=== PATIENT | male | born 1995 | race Caucasian/White ===

== ENCOUNTER 2020-10-19 14:22 | Inpatient (IN) | payer OTHER ==
[2020-10-19 15:28] LABS: BILIRUBIN,URINE NEGATIVE (NEGATIVE); GLUCOSE, URINE (UA) NEGATIVE (NEGATIVE); KETONES,URINE (UA) NEGATIVE (NEGATIVE); LEUKOCYTE ESTERASE, URINE NEGATIVE (NEGATIVE); NITRITE,URINE NEGATIVE (NEGATIVE); OCCULT BLOOD,URINE TRACE-INTA (NEGATIVE); PROTEIN,URINE TRACE mg/dL (NEGATIVE); UROBILINOGEN,URINE 0.2 (NORMAL) E.U./dL (NORMAL)
[2020-10-19 15:32] LABS: BASOPHILS % (AUTO) 0.5 %; EOSINOPHILS # (AUTO) 0.1 10^3/uL (0.0-0.7); EOSINOPHILS % (AUTO) 1.5 %; HCT - HEMATOCRIT 43.8 % (42.0-52.0); HGB - HEMOGLOBIN 15.1 g/dL (14.0-18.0); LYMPHOCYTES # (AUTO) 0.5 10^3/uL (1.5-3.5); MEAN CORPUSCULAR HEMOGLOBIN 29.8 pg (27.0-31.0); MEAN CORPUSCULAR HGB CONC 34.5 g/dL (32.0-36.0); MEAN CORPUSCULAR VOLUME 86.6 fL (80.0-94.0); MEAN PLATELET VOLUME 9.4 fL (7.4-11.4); MONOCYTES # (AUTO) 0.5 10^3/uL (0.0-1.0); MONOCYTES % (AUTO) 6.1 %; NEUTROPHILS # (AUTO) 6.7 10^3/uL (1.5-6.6); NEUTROPHILS % (AUTO) 85.3 %; PLT - PLATELET COUNT 212 10^3/uL (130-450); RED BLOOD COUNT 5.06 10^6/uL (4.70-6.10); RED CELL DISTRIBUTION WIDTH 11.9 % (12.0-15.0); WHITE BLOOD COUNT 7.8 x10^3/uL (4.8-10.8)
[2020-10-19] MEDS ORDERED: SODIUM CHLORIDE 0.9% 2,585.49 ML IV STA (15:36)
--- NOTE | 2020-10-19 15:36 | ED Physician Documentation ---
History of Present Illness - Stated complaint Stated Complaint: FEVER - Chief complaint Chief Complaint: General - Additonal information Additional information: 25-year-old male presents the emergency department for evaluation of fever and i ncreasing scrotal pain. 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 About 2 weeks ago he had two scrotal cyst removed at an [place] dermatology clinic. He went back to the clinic yesterday for suture removal and there was purulent drainage. The solar applications development engineer placed him on Bactrim but told him that if he developed a fever to come immediately to the ER. Since being seen yesterday he has had fever, generalized rigors chills joint pain. No chest pain shortness of air vomiting or diarrhea. He denies a history of diabetes. Review of Systems Constitutional: reports: Fever, Chills, Myalgias Eyes: reports: Reviewed and negative Ears: reports: Reviewed and negative Nose: reports: Reviewed and negative Throat: reports: Reviewed and negative Cardiac: reports: Reviewed and negative Respiratory: reports: Reviewed and negative GI: reports: Reviewed and negative : reports: Testicular pain (Bilateral scrotal and testicular pain) Skin: denies: Rash, Lesions PD PAST MEDICAL HISTORY - Present Medications Home Medications: Ambulatory Orders Medication Instructions Recorded Confirmed Mupirocin 2% Oint [Bactroban 2% 1 applic TOP BID 10/19/20 10/19/20 Oint] - Allergies Allergies/Adverse Reactions: Allergies Allergy/AdvReac Type Severity Reaction Status Date / Time nickel Allergy Unknown Verified 10/19/20 14:46 PD ED PE EXPANDED - General General: Alert, No acute distress - Cardiac Cardiac: Tachy, Radial strong equal, Pedal strong equal, Cap refill < 2 sec - Respiratory Respiratory: Clear to ausultation jayce. No: Distress, Labored - Abdomen Abdomen: Normal Bowel sounds. No: Tender to palpation - Male Male : Tenderness, Other (Bilateral scrotum is erythematous and edematous. The site of two cysts being removed was identified with a small amount of clear but purulent drainage. Bilateral testicular pain. Negative cremasteric bilaterally) - Neuro Neuro: Alert and Oriented X 3, CNII-XII intact Results - Vitals Vitals: Vital Signs - 24 hr 10/19/20 10/19/20 14:40 16:52 Temperature 39.1 C H 37.8 C Heart Rate 126 H 108 H Respiratory 18 18 Rate Blood Pressure 137/78 H 128/89 H O2 Saturation 95 96 Oxygen O2 Source Room air - Labs Labs: Laboratory Tests 10/19/20 10/19/20 10/19/20 15:09 15:26 15:26 WBC 7.8 RBC 5.06 Hgb 15.1 Hct 43.8 MCV 86.6 MCH 29.8 MCHC 34.5 RDW 11.9 L Plt Count 212 MPV 9.4 Neut # (Auto) 6.7 H Lymph # (Auto) 0.5 L [place] # (Auto) 0.5 Eos # (Auto) 0.1 Baso # (Auto) 0.0 Absolute Nucleated RBC 0.00 Nucleated RBC % 0.0 Sodium Potassium Chloride Carbon Dioxide Anion Gap BUN Creatinine Estimated GFR (MDRD) Glucose Lactic Acid 0.7 Calcium Total Bilirubin AST ALT Alkaline Phosphatase Total Protein Albumin Globulin Albumin/Globulin Ratio Urine Color YELLOW Urine Clarity CLEAR Urine pH 6.0 Ur Specific [place] >=1.030 H Urine Protein TRACE Urine Glucose (UA) NEGATIVE Urine Ketones NEGATIVE Urine Occult Blood TRACE-INTA Urine Nitrite NEGATIVE Urine Bilirubin NEGATIVE Urine Urobilinogen 0.2 (NORMAL) Ur Leukocyte Esterase NEGATIVE Urine RBC 0-5 Urine WBC 0-3 Ur Squamous Epith Cells NONE SEEN Urine Bacteria None Seen Urine Mucus Moderate Strands Urine Culture Comments NOT INDICATED 10/19/20 15:26 WBC RBC Hgb Hct MCV MCH MCHC RDW Plt Count MPV Neut # (Auto) Lymph # (Auto) [place] # (Auto) Eos # (Auto) Baso # (Auto) Absolute Nucleated RBC Nucleated RBC % Sodium 135 Potassium 3.7 Chloride 97 L Carbon Dioxide 26 Anion Gap 12.0 BUN 10 Creatinine 1.0 Estimated GFR (MDRD) 90 Glucose 111 H Lactic Acid Calcium 9.5 Total Bilirubin 0.5 AST 19 ALT 22 Alkaline Phosphatase 69 Total Protein 7.9 Albumin 4.6 Globulin 3.3 Albumin/Globulin Ratio 1.4 Urine Color Urine Clarity Urine pH Ur Specific [place] Urine Protein Urine Glucose (UA) Urine Ketones Urine Occult Blood Urine Nitrite Urine Bilirubin Urine Urobilinogen Ur Leukocyte Esterase Urine RBC Urine WBC Ur Squamous Epith Cells Urine Bacteria Urine Mucus Urine Culture Comments - Rads (name of study) CT pelvis Radiology: Final report received (Mild skin thickening of the scrotum and medial right thigh without an associated abscess collection identified. No CT evidence of Joseph's gangrene) PD MEDICAL DECISION MAKING - ED course Complexity details: reviewed results, re-evaluated patient, d/w patient ED course: 25-year-old male who has a history of recurrent scrotal cysts comes to the ER with increasing scrotal pain erythema after having a scrotal cyst removed 2 weeks ago through a solar applications development engineer in [place]. Yesterday during suture removal some purulent drainage was noted and he was started on Bactrim. Over the last 24 hours he has developed generalized rigors fever myalgias. He did present here with a fever 39 1 and significant tachycardia. He was given 30 mils per kilo of saline. However he did not have an elevated lactate or leukocytosis. Given the possibilityfor Joseph's gangrene and a CT of the pelvis was completed it does show mild skin thickening in the scrotum and medial right thigh without an associated abscess. Though there is no obvious abscess identified and at this time no urgent urologic procedure is necessary he will likely benefit from IV antibiotics however as we lack urology services I will consult with urology at [facility] for their recommendations on admission here with IV antibiotics versus transfer 1720: I have spoken with Dr. Alas on-call urologist with [facility] urology. We discussed the history CT imaging and lab findings. At this time as no findings of Joseph gangrene are present and no urgent urologic procedure is necessary the patient does not need to be transferred. He would recommend admission here for IV antibiotics to [facility]. Vancomycin and ceftriaxone which has been ordered. He would recommend that once discharged from the hospital close follow-up with urology. He is happy to consult should it become necessary during the course of this hospitalization. I discussed this case with our day hospitalist Dr. Rodríguez who agrees to admit the patient for further treatment of his cellulitis of the scrotum Departure - Departure Disposition: [facility] YANIRA/Chan Clinical Impression: Cellulitis of scrotum Discharge Date/Time: 10/19/20 19:03
[2020-10-19] MEDS ORDERED: IOVERSOL 320 100 ML VIAL IVP ONE ×2 (15:37→16:29)
[2020-10-19 15:44] LABS: ALBUMIN 4.6 g/dL (3.2-5.5); ALBUMIN/GLOBULIN RATIO 1.4 (1.0-2.2); BILIRUBIN,TOTAL 0.5 mg/dL (0.2-1.0); CALCIUM 9.5 mg/dL (8.5-10.3); POTASSIUM 3.7 mmol/L (3.5-5.0); TOTAL PROTEIN 7.9 g/dL (6.7-8.2)
[2020-10-19 15:46] LABS: CLARITY,URINE CLEAR (CLEAR); WBC,URINE 0-3 /HPF (0-3)
[2020-10-19 15:47] LABS: BACTERIA,URINE None Seen /HPF (None Seen); MUCUS,URINE Moderate Strands; RBC,URINE 0-5 /HPF (0-5); SQUAMOUS EPITHELIAL CELL,UR NONE SEEN (<= Few)
--- NOTE | 2020-10-19 16:50 | CT Report ---
PROCEDURE: PELVIS W INDICATIONS: recent scrotal cyst removal ; fever and pain CONTRAST: IV CONTRAST: Optiray 320 ml: 100 PO CONTRAST: *NO PO CONTRAST TECHNIQUE: After the administration of intravenous contrast, 5 mm thick sections acquired from the iliac crests to the symphysis. 5 mm thick coronal and sagittal reformats were acquired. For radiation dose reduc tion, the following was used: automated exposure control, adjustment of mA and/or kV according to pa tient size. COMPARISON: None. FINDINGS: Image quality: Excellent. Peritoneum and bowel: Visualized bowel loops demonstrate normal wall thickness and caliber. The appe ndix is normal in appearance. There is colonic diverticulosis without acute diverticulitis in the pel vis. No intraperitoneal free fluid or air. Genitourinary: Bladder wall thickness is normal. Nodes and vessels: No iliac, pelvic, or inguinal adenopathy. Iliac vessels demonstrate normal size and enhancement. Bones: No suspicious bony lesions. Miscellaneous: No inguinal hernias. There is mild nonspecific skin thickening in the scrotum and along the proximal medial right thigh. N o discrete loculated fluid collection to suggest an abscess. No abnormal skin thickening, soft tissue gas, or subcutaneous edema in the perineum to suggest Joseph's gangrene. IMPRESSION: 1. Mild skin thickening in the scrotum and medial right thigh without an associated abscess collectio n identified. 2. No CT evidence of Joseph's gangrene. Reviewed by: Baldomero Velez MD on 10/19/2020 4:48 PM PDT Approved by: Baldomero Velez MD on 10/19/2020 4:48 PM PDT Station ID: [id number]
[2020-10-19] MEDS ORDERED: VANCOMYCIN INJ 1.5 GM in SODIUM CHLORIDE 0.9% 500 ML IV STA (17:07)
[2020-10-19] MEDS ORDERED: cefTRIAXone 1 GM in SODIUM CHLORIDE 0.9% MINIBAG 100 ML IV STA (17:08)
[2020-10-19] MEDS ORDERED: SODIUM CHLORIDE FLUSH 0.9% 10 ML SYRINGE IVP PRN (17:31)
[2020-10-19] MEDS ORDERED: ACETAMINOPHEN 325 MG TABLET PO PRN (17:31)
[2020-10-19] MEDS ORDERED: MORPHINE 2 MG/ML CARPUJECT IVP PRN (17:31)
[2020-10-19] MEDS ORDERED: ONDANSETRON 4 MG/2 ML VIAL IVP PRN (17:31)
--- NOTE | 2020-10-19 17:43 | HISTORY & PHYSICAL EXAMINATION ---
Chief Complaint - Chief Complaint Chief Complaint: scrotal redness and pain History of Present Illness - Admitted From Admitted From:: ER - History Obtained From Records Reviewed: [facility] History obtained from: pt Exam Limitations: no - History of Present Illness HPI Comment/Other: This is a 25-year-old male with significantly medical history of recurrent scrotal cysts who presents the emergency department complain of fever, chill and increasing scrotal pain. pt report 2 weeks ago he had two scrotal cyst removed by an [place] dermatology clinic. Then his scrotal area developed erythema, pain and swelling. Pt was concerned that there was an infection. Pt went to see dermatology clinic office on yesterday. His suture was removal and there was purulent drainage. Pt was prescribed on Bactrim and pt was told to come to the ED if he got fever. Pt reports he had fever, chill and pain at home and felt myalgias. Pt reports "hurts at everywhere", especially at low back and joint pain. CT of the pelvis show mild skin thickening in the scrotum and medial right thigh without an associated abscess, no CT evidence of Joseph's gangrene. In the ER, patient is febrile at 39.1 CH, tachycardia at 126. Routine laboratory test show was unremarkable, lactic acid is 0.7. ER provider have spoken with Dr. Alas on-call urologist with [facility] per ER report. Urologist recommend at this time pt has no urgent urologic procedure and the patient does not need to be transferred. He would recommend admission in [facility] for IV antibiotics. Given pt's above medical condition, medical team was consulted to admit this pat ient. Discussed the care goal with patient, patient requests full code History - Past Surgical History Derm: reports: Other - Family & Social History Family History: Mother: Alive and Well, Father: Alive and Well Family History Comment/Other: Patient report both his father and brother has scrotal cyst. His mother is health. Social History Notes: Patient reported he quit Cigarette smoking 3 months ago. He denies alcohol and drug issue - POLST Patient has POLST: No Meds/Allgy - Home Medications Home Medications: Ambulatory Orders Medication Instructions Recorded Confirmed Mupirocin 2% Oint [Bactroban 2% 1 applic TOP BID 10/19/20 10/19/20 Oint] - Allergies Allergies/Adverse Reactions: Allergies Allergy/AdvReac Type Severity Reaction Status Date / Time nickel Allergy Unknown Verified 10/19/20 14:46 Review of Systems - Constitutional Constitutional: reports: Fever, Chills, Malaise, Night sweats. denies: Weakness, Poor appetite, Diaphoresis - Eyes Eyes: denies: Pain, Blurred vision, Field loss, Vision loss - Ears, Nose & Throat Ears, Nose & Throat: denies: Ear pain, Nosebleeds, Bleeding gums - Cardiovascular Cariovascular: denies: Palpitations, Chest pain, Lightheadedness, Syncope, Exertional dyspnea - Respiratory Respiratory: denies: Cough, Sputum production, Wheezing, Hemoptysis, Orthopnea, SOB at rest - Gastrointestinal Gastrointestinal: denies: Abdominal pain, Constipation, Diarrhea, Rectal bleeding, Nausea, Vomiting - Genitourinary Genitourinary: denies: Dysuria, Urgency, Incontinence - Musculoskeletal Musculoskeletal: denies: Muscle pain, Muscle aches, Limited range of motion - Integumentary Integumentary: denies: Rash, Lesions - Neurological Neurological: denies: General weakness, Focal weakness, Headache, Dizziness, Numbness, Pre-existing deficit, Abnormal gait, Seizures, Incoordination, Slurred speech - Psychiatric Psychiatric: denies: Depression, Anxiety - Endocrine Endocrine: denies: Polyuria - Hematologic/Lymphatic Hematologic/Lymphatic: denies: Anemia, Recurrent infections Prior Level of Functionality: Patient is independent at home Exam - Vital Signs Vital Signs: Vital Signs x48h Temp Pulse Resp BP Pulse Ox 10/19/20 16:52 37.8 C 108 H 18 128/89 H 96 10/19/20 14:40 39.1 C H 126 H 18 137/78 H 95 - Physical Exam General Appearance: positive: No acute distress, Alert. negative: Lethargic Eyes Bilateral: positive: Normal inspection, PERRL, No lid inflammation ENT: positive: ENT inspection nml, No signs of dehydration. negative: Purulent nasal drainage Neck: positive: Nml inspection, Trachea midline. negative: Thyromegaly, Tracheal deviation Respiratory: positive: Chest non-tender, No respiratory distress, Breath sounds nml. negative: Wheezes, Rales Cardiovascular: positive: Regular rate & rhythm, No murmur. negative: Tachycardia, Bradycardia, Systolic murmur, Diastolic murmur Peripheral Pulses: positive: 2+ Abdomen: positive: Non-tender, Nml bowel sounds, No distention. negative: Tenderness, Guarding Rectal: positive: Other (with nurse togather to exam pt. pt has mild swelling but erythema scrotum, there is no drainage, skin is intact, no tenderness.) Back: positive: Nml inspection Skin: positive: Color nml, Warm, Dry. negative: Cyanosis, Diaphoresis Extremities: positive: Non-tender, Full ROM, Nml appearance. negative: Calf tenderness Neurologic/Psychiatric: positive: Oriented x3, Motor nml, Sensation nml, Mood/affect nml. negative: Weakness, Sensory loss, Facial droop, Slurred/abnml speech, Depressed mood/affect Sepsis Event Note (H) - Evaluation Current Stage of Sepsis: Sepsis Possible source of Sepsis: positive: Skin/soft tissue - Sepsis Criteria Sepsis Criteria: Recorded Temperature greater than 38.3C or Less than 36C, Recorded Heart Rate greater than 90 bpm Conclusion/Plan - Problem List (1) Sepsis Conclusion/Plan: pt had high fever at 39.1, and Tachycardia at 126. pt had scrotum cellulitis without abscess after his scrotal cysts were removed and no Joseph's gangrene in CT. ER already started antibiotics Rocephin and vancomycin for patient, we will continue those antibiotics, add probiotics and intravenous IV fluids for patient, We will continue vital signs monitor and pathology laboratory technologist, supervisor maintenance overnight. (2) Cellulitis of scrotum Conclusion/Plan: pt had scrotum cellulitis without abscess after his scrotal cysts were removed and no Joseph's gangrene in CT. We will continue antibiotics Rocephin and vancomycin, We will also check CRP, Intravenous IV fluids, pain control, Contin ue laboratory and vital signs monitor. - Lab Results Fish Bones: 10/19/20 15:26 10/19/20 15:26 Core Measures - Anticipated LOS I expect patient to be DC'd or transferred within 96 hours.: Yes - DVT/VTE - Prophylaxis VTE/DVT Device ordered at admit?: Yes
--- NOTE | 2020-10-19 17:44 | PHARMACY PROGRESS NOTE ---
- Best Possible Medication History Admit Date and Time: Pt in ED Processed by: Pharmacy Medication History completed: Yes Patient Interview: Pt interview ONLY source As the person ultimately responsible for medication therapy, providers are able to order a medication from an existing home medication list in [facility] via the "Reconcile Routine" prior to Confirmation of that medication by applications support analyst. Such practice is discouraged except when the physician, in their clinical judgment, deems that a medical need exists for a medication without regard to previous use.
--- NOTE | 2020-10-19 17:56 | Ultrasound Report ---
PROCEDURE: Testicle w/Doppler Limited INDICATIONS: cyst removal eval for blood flow TECHNIQUE: Real-time scanning was performed of the scrotum and testicles, with image documentation. Color and p ulse Doppler interrogation was performed of both testicles. COMPARISON: CT pelvis day. FINDINGS: Right: Testicle is normal in size at 4.8 x 2.8 x 2.5 cm, and homogenous in echotexture. Epididymis is normal in overall size and morphology. No hydrocele or varicoceles. Overlying scrotal skin is no rmal in thickness. No scrotal wall hyperemia. Left: Testicle is normal in size at 4.6 x 2.7 x 2.3 cm. Echogenic focus in the left testicle measuri ng 0.2 cm. No internal vascularity at this site. No posterior acoustic shadowing. Otherwise homogeneo us in echotexture of the left testis. Epididymis is normal in overall size and morphology. Mild vari coceles. No hydrocele. Overlying scrotal skin is normal in thickness. No scrotal wall hyperemia seen. Doppler: Color and pulse Doppler demonstrate normal and symmetric arterial flow in both testicles. IMPRESSION: 1. Symmetric blood flow within the testes and epididymides bilaterally. The blood flow may be slightl y hyperemic. Alternatively, this could be due to color Doppler gain setting. 2. Incidental echogenic focus in the left testes measuring 0.2 cm. No internal blood flow seen. This could be due to small calcification. Less likely neoplasm. -This could be followed up with ultrasound in 3-6 months. 3. Left varicocele. No hydroceles. 4. No scrotal wall hyperemia or thickening is appreciated. Reviewed by: Vivek Cheng MD on 10/19/2020 5:55 PM PDT Approved by: Vivek Cheng MD on 10/19/2020 5:55 PM PDT Station ID: [id number]
--- NOTE | 2020-10-19 18:32 | PHARMACY PROGRESS NOTE ---
- Therapy Status Vancomycin regimen day #: 1 Therapy status: Awaiting steady state Basis for treatment: Empirical Treatment indication: Genitourinary infection/Post surgical infection Trough goal: 15-20 Concurrent antibiotics: Ceftriaxone 2g daily - ELE Risk Risk level for Acute Kidney Injury: Low Acute Kidney Injury risk factors: Goal trough >15 - Monitoring and Recommendation Clinical response to treatment: I&O Previous 24 hours 10/17/20 10/18/20 10/19/20 23:59 23:59 23:59 Intake Total 100 Balance 100 Lab Results 10/19/20 15:26 BUN 10 Creatinine 1.0 Estimated GFR (MDRD) 90 Monitoring plan: Suggest ongoing fluid replacement Next trough due prior to maintenance dose #: 5 Next trough due (date/time): 10/21/20 @0930 Areas for additional monitoring: IV to PO when appropriate, Therapy de- escalation based on culture results Pharmacy recommendation: Continue current regime
[2020-10-19] MEDS: oxyCODONE 5 MG TABLET PO PRN (19:18)
[2020-10-19 19:35] LABS: B. PARAPERTUSSIS- RESP PCR PAN NOT DETECTED; B. PERTUSSIS- RESP PCR PANEL NOT DETECTED; C. PNEUMONIAE- RESP PCR PANEL NOT DETECTED; CORONAVIRUS 229E-RESP PCR NOT DETECTED; CORONAVIRUS HKU1-RESP PCR NOT DETECTED; CORONAVIRUS NL63-RESP PCR NOT DETECTED; CORONAVIRUS OC43-RESP PCR NOT DETECTED; HUMAN METAPNEUMOVIRUS NOT DETECTED; INFLUENZA A- RESP PCR PANEL NOT DETECTED; INFLUENZA B - RESP PCR PANEL NOT DETECTED; M. PNEUMONIAE- RESP PCR PANEL NOT DETECTED; PARAINFLUENZA VIRUS 1 NOT DETECTED; PARAINFLUENZA VIRUS 2 NOT DETECTED; PARAINFLUENZA VIRUS 3 NOT DETECTED; PARAINFLUENZA VIRUS 4 NOT DETECTED; RHINOVIRUS/ENTEROVIRUS NOT DETECTED; RSV- RESP PCR PANEL NOT DETECTED; SARS-CoV-2 -RESP PCR PANEL NOT DETECTED
[2020-10-19] MEDS: SODIUM CHLORIDE 0.9% 1,000 ML IV SCH (20:39)
[2020-10-20] MEDS: VANCOMYCIN INJ 1 GM in SODIUM CHLORIDE 0.9% 250 ML IV SCH ×2 (01:54→10:29)
[2020-10-20] MEDS: SODIUM CHLORIDE FLUSH 0.9% 10 ML SYRINGE IVP SCH ×2 (01:54→08:14)
[2020-10-20 04:35] LABS: BASOPHILS % (AUTO) 0.4 %; EOSINOPHILS # (AUTO) 0.2 10^3/uL (0.0-0.7); HCT - HEMATOCRIT 39.9 % (42.0-52.0); HGB - HEMOGLOBIN 13.8 g/dL (14.0-18.0); LYMPHOCYTES % (AUTO) 13.9 %; MEAN CORPUSCULAR HEMOGLOBIN 30.1 pg (27.0-31.0); MEAN CORPUSCULAR HGB CONC 34.6 g/dL (32.0-36.0); MEAN CORPUSCULAR VOLUME 86.9 fL (80.0-94.0); MEAN PLATELET VOLUME 9.8 fL (7.4-11.4); MONOCYTES # (AUTO) 0.6 10^3/uL (0.0-1.0); NEUTROPHILS # (AUTO) 5.1 10^3/uL (1.5-6.6); NEUTROPHILS % (AUTO) 73.3 %; PLT - PLATELET COUNT 185 10^3/uL (130-450); RED BLOOD COUNT 4.59 10^6/uL (4.70-6.10); RED CELL DISTRIBUTION WIDTH 11.9 % (12.0-15.0); WHITE BLOOD COUNT 6.9 x10^3/uL (4.8-10.8)
[2020-10-20 04:50] LABS: CALCIUM 8.5 mg/dL (8.5-10.3); CREATININE 0.9 mg/dL (0.6-1.2); POTASSIUM 4.1 mmol/L (3.5-5.0)
[2020-10-20] MEDS ORDERED: SACCHAROMYCES BOULARDII 250 MG CAPSULE PO SCH ×2 (08:00→17:00)
[2020-10-20] MEDS: oxyCODONE 5 MG TABLET PO PRN (08:08)
[2020-10-20] MEDS: SODIUM CHLORIDE 0.9% 1,000 ML IV SCH (08:09)
[2020-10-20] MEDS ORDERED: ENOXAPARIN 40 MG/0.4 ML SYRINGE SUBQ SCH (09:00)
[2020-10-20] MEDS ORDERED: cefTRIAXone 2 GM in SODIUM CHLORIDE 0.9% MINIBAG 100 ML IV SCH (09:00)
[2020-10-20 10:22] VITALS: BP 120/70
--- NOTE | 2020-10-20 12:30 | Discharge Plan ---
Discharge Plan Problem Reviewed?: Yes Disposition: 07 Against Medical Advice Condition: Stable Prescriptions: cefUROXime axetiL [Ceftin] 500 mg PO Q12H 6 Days #24 tablet Saccharomyces Boulardii [Florastor] 500 mg PO BIDWM 6 Days #24 cap Diet: Regular Activity Restrictions: Activity as Tolerated Instruction Topics: Cellulitis Ch No Smoking: If you smoke, Please STOP! Call for help. Follow-up with: CALE CANDELARIA MD [Primary Care Provider] -
--- NOTE | 2020-10-20 12:38 | DISCHARGE SUMMARY ---
Discharge Summary Admit Date: 10/19/20 Discharge Date: 10/20/20 Discharging Provider: Kyle Bonilla Primary Care Provider: Reji Yip Condition at Discharge: Stable Discharge Disposition: Against Medical Advice Discharge Facility Name: home - DIAGNOSES Discharge Diagnoses with Status of Each Condition: (1) Sepsis improved. pt has no more fever, but pt still has mild tachycardia. blood culture is pending. pt request to sign AMA to home. pt is prescribed Ceftin antibiotics. pt report he had bactrim at home as well. (2) Cellulitis of scrotum slightly improved. pt signed AMA. pt is prescribed Ceftin to home (3)AMA in the morning pt state he is willing to stay at hospital on today. pt's blood culture is pending, pt had significant fever on yesterday, today his temperature is still elevated but no fever yet, pt still has mild tachycardia. But he changed his mind, he state he has court day on today afternoon 3 pm with his former . He request to sign AMA to go home right away. The risk of AMA was explained to pt. He verbally state he understood. pt is prescribed Ceftin antibiotics. he is instructed if he has fever again, call 911 for help or present ER. - HPI History of Present Illness: This is a 25-year-old male with significantly medical history of recurrent scrotal cysts who presents the emergency department complain of fever, chill and increasing scrotal pain. pt report 2 weeks ago he had two scrotal cyst removed by an [place] dermatology clinic. Then his scrotal area developed erythema, pain and swelling. Pt was concerned that there was an infection. Pt went to see dermatology clinic office on yesterday. His suture was removal and there was purulent drainage. Pt was prescribed on Bactrim and pt was told to come to the ED if he got fever. Pt reports he had fever, chill and pain at home and felt myalgias. Pt reports "hurts at everywhere", especially at low back and joint pain. CT of the pelvis show mild skin thickening in the scrotum and medial right thigh without an associated abscess, no CT evidence of Joseph's gangrene. In the ER, patient is febrile at 39.1 CH, tachycardia at 126. Routine laboratory test show was unremarkable, lactic acid is 0.7. ER provider have spoken with Dr. Alas on-call urologist with [facility] per ER report. Urologist recommend at this time pt has no urgent urologic procedure and the patient does not need to be transferred. He would recommend admission in [facility] for IV antibiotics. Given pt's above medical condition, medical team was consulted to admit this patient. Discussed the care goal with patient, patient requests full code - HOSPITAL COURSE Hospital Course: Patient was admitted for fever and scrotal cellulitis. Patient was treated with intravenous antibiotics and intravenous IV fluids. After treated overnight, Patient's fever was resolved but still had slightly elevated temperature, Still has mild tachycardia, patient's blood culture is pending. Patient request AMA to left the hospital. Risk of signed AMA was explained to the patient. Patient verbally understand. Patient is prescribed Ceftin antibiotics. - ALLERGIES Allergies/Adverse Reactions: Allergies Allergy/AdvReac Type Severity Reaction Status Date / Time nickel Allergy Unknown Verified 10/19/20 14:46 - MEDICATIONS Home Medications: Ambulatory Orders Medication Instructions Recorded Confirmed Mupirocin 2% Oint [Bactroban 2% 1 applic TOP BID 10/19/20 10/19/20 Oint] Saccharomyces Boulardii [Florastor] 500 mg PO BIDWM 6 Days #24 cap 10/20/20 cefUROXime axetiL [Ceftin] 500 mg PO Q12H 6 Days #24 tablet 10/20/20 - LABS Result Diagrams: 10/20/20 04:15 10/20/20 04:15 - SEPSIS Current Stage of Sepsis: Sepsis Possible source of Sepsis: Skin/soft tissue Sepsis Criteria: Recorded Temperature greater than 38.3C or Less than 36C, Recorded Heart Rate greater than 90 bpm - FOLLOW UP Follow Up: he is instructed if he has fever again, call 911 for help or present ER. - TIME SPENT Time Spent in Discharge (Minutes): 30
== END 2020-10-20 13:03 | disposition left against medical advice (07) | DRG 872 ==
LOC: ED 14:22 → MS3 17:31
PROVIDERS: ADMIT Nurse Practitioner Gerontology; ATTEND Nurse Practitioner Gerontology
DX: A41.9 Sepsis, unspecified organism (principal); N49.2 Inflammatory disorders of scrotum; Z87.81 Personal history of (healed) traumatic fracture; Z53.29 Procedure and treatment not carried out because of patient's decision for other reasons; Z87.898 Personal history of other specified conditions; Z20.822 Contact with and (suspected) exposure to COVID-19
CPT/HCPCS: 0202U; 36415; 72193; 76870; 80048; 80053; 81001; 83605; 85025; 86140; 87040; 93976; 99284; 99285; A9270; J3370; Q9967; 87086

== ENCOUNTER 2023-01-07 09:49 | Emergency (ER) | payer OTHER ==
[2023-01-07 09:59] VITALS: BP 142/100; O2SAT 98
--- NOTE | 2023-01-07 10:45 | ED Physician Documentation ---
PD HPI SKIN - Stated complaint Stated Complaint: - Chief complaint Chief Complaint: Wound - History obtained from History obtained from: Patient - History of Present Illness Timing - onset: How many weeks ago (2-3) Timing - duration: Weeks (he has noted a bump in the area for couple of years, but just the past 2-3 weeks it has gotten bigger and then red/tender. It opened and drained with pus and blood yesterday which concerned him. Tried to go to [facility] but referred to ER.) Timing - details: Gradual onset Location: Other (above the anus toward sacral area.) Quality / character: Painful, Discolored (red), Swelling, Draining (yesterday) Similar symptoms before: No diagnosis Review of Systems Constitutional: denies: Fever, Chills GI: denies: Nausea, Vomiting PD PAST MEDICAL HISTORY - Past Medical History Cardiovascular: None Neuro: None Endocrine/Autoimmune: None GI: None : None Psych: None Musculoskeletal: None Derm: Other - Past Surgical History Past Surgical History: Yes Derm: Other - Present Medications Home Medications: Ambulatory Orders Medication Instructions Recorded Confirmed Mupirocin 2% Oint [Bactroban 2% 1 applic TOP BID 10/19/20 10/19/20 Oint] Saccharomyces Boulardii [Florastor] 500 mg PO BIDWM 6 Days #24 cap 10/20/20 cefUROXime axetiL [Ceftin] 500 mg PO Q12H 6 Days #24 tablet 10/20/20 Doxycycline Hyclate 100 mg PO BID 7 Days #14 cap 01/07/23 - Allergies Allergies/Adverse Reactions: Allergies Allergy/AdvReac Type Severity Reaction Status Date / Time nickel Allergy Unknown Verified 01/07/23 09:57 - Social History Does the pt smoke?: No Smoking Status: Former smoker Does the pt drink ETOH?: Yes Does the pt have substance abuse?: No - Immunizations Immunizations are current?: Yes - POLST Patient has POLST: No PD ED PE NORMAL - Vitals Vital signs reviewed: Yes - General General: Alert and oriented X 3, No acute distress, Well developed/nourished - Rectal Rectal: Other (the rectum and perirectal is normal. There is a red, tender nonfluctuant lump in upper gluteal muscle area left of midline. It is not as hig h up as I would expect for pilonidal cyst. There is no fluctuance. Bedside US showed just minimal residual fluid in area, so seems to have drained well on own.) - Derm Derm: Normal color, Warm and dry, Other (surrounding redness about 2-3 cm radius. ) Results - Vitals Vitals: Vital Signs - 24 hr 01/07/23 09:52 Temperature 36.6 C Heart Rate 95 Respiratory 16 Rate Blood Pressure 142/100 H O2 Saturation 98 Oxygen O2 Source Room air PD Medical Decision Making - ED course Complexity details: considered differential (probably more sebaceous gland cyst now infected as not exactly in spot for pilonidal cyst. It has drained on its own, but residual soft tissue infection around it warrants antibiotics and s oaks. ), d/w patient Departure - Departure Disposition: 01 Home, Self Care Clinical Impression: Abscess of sacrum Condition: Stable Record reviewed to determine appropriate education?: Yes Instructions: ED Staph Infec Abx Tx Only Prescriptions: Doxycycline Hyclate 100 mg PO BID 7 Days #14 cap Comments: There does not appear to be much residual fluid in the area. It seems to go drain fairly well. However there is still surrounding redness and tenderness. We can treat with doxycycline antibiotic. I would continue with ibuprofen 600 mg 3 times daily with food the next several days as well. To that add Tylenol if needed for pains. Off work today. I would suggest doing warm moist compresses to the area or warm soaks in a tub to promote blood flow to the area and see if more drainage occurs. I would anticipate improvement over the next few days and resolution over 4 to 5 days. Follow-up with your primary care if not. I sent your antibiotic prescription to [facility] pharmacy. Forms: PCP List, Activity restrictions Discharge Date/Time: 01/07/23 12:03
[2023-01-07] MEDS ORDERED: DOXYCYCLINE 100 MG TABLET PO STA (11:47)
[2023-01-07] MEDS ORDERED: ACETAMINOPHEN 325 MG TABLET PO STA (11:47)
== END 2023-01-07 12:03 | disposition home or self-care (01) ==
LOC: ED 09:49
DX: A18.01 Tuberculosis of spine (principal); Z87.891 Personal history of nicotine dependence
CPT/HCPCS: 99282; 99283